=== PATIENT | female | born 1960 | race Caucasian/White ===

== ENCOUNTER 2016-03-11 16:39 | Emergency (ER) | payer OTHER ==
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
[2016-03-11 17:27] LABS: ABSOLUTE BASOPHIL COUNT 0 /CUMM (0.0-0.2); ABSOLUTE EOSINOPHIL COUNT 0.1 /CUMM (0.0-0.7); ABSOLUTE LYMPH COUNT 1.7 /CUMM (1.2-3.4); ABSOLUTE MONOCYTE COUNT 0.3 /CUMM (0.10-0.60); BASOPHIL % 0.4 % (0.0-2.0); GRANULOCYTE % 65.1 % (42.2-75.2); HEMATOCRIT 45.2 % (37-47); MEAN CORPUSCULAR HGB 32.5 PG (27.0-31.0); MEAN CORPUSCULAR HGB CONC 34.4 G/DL (33.0-37.0); MEAN CORPUSCULAR VOLUME 94.4 FL (81.0-99.0); MEAN PLATELET VOLUME 7.9 FL (7.4-10.4); PLATELET COUNT 206 /CUMM (130-400); RBC DISTRIBUTION WIDTH 13.3 % (11.5-14.5); RED BLOOD CELL CT 4.79 /CUMM (4.20-5.40); WHITE BLOOD CELL COUNT 6.1 /CUMM (4.8-10.8)
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
--- NOTE | 2016-03-11 19:16 | ED PSY CRISIS COLLATERAL NOTE ---
Collateral Note Collateral Note Family/Inform/Rema Contacts: Collateral provided by daughter Teetee [phone]. She reports mother has made SI statements in the past though she thinks it has been due to anger and frustration and not intential thoughts or plans to harn herself. Her understanding of what happened today was her mother was to receive her first unemployment check today and it was deposited into an old joint acct she had with her ex- who then withdrew the $ and she is now unable to make her car payment.She reports mother has no tx hx but she describes her as somewhat depressed and can be fuentes and impulsive. She is not aware of her taking medications. She reports mother drinks daily beer but will drink more when she has a day off from work. She had been working at [employer] but recently was laid off [employer] job. She reports not thinking mother is a safety risk and reports feeling comfortable with mother discharging home if that is the recommendation. She is hopeful mother would go to outpatient therapy.
[2016-03-11 19:29] VITALS: BP 144/94
== END 2016-03-11 20:20 ==
LOC: ERH 16:39
PROVIDERS: Physician Assistant
DX: R45.851 Suicidal ideations (principal)
CPT/HCPCS: 80307; G0463; G0480